=== PATIENT | male | born 1995 | race Caucasian/White ===

== ENCOUNTER 2023-03-12 12:46 | Emergency (ER) | payer OTHER, SELFPAY ==
[2023-03-12 12:47] VITALS: BP 130/85; PULSE 65; RESP 16; TEMP 36.4; O2SAT 100; BMI 29.0
--- NOTE | 2023-03-12 13:02 | EDS_ITS ---
HPI History of Present Illness Chief Complaint: Upper Extremity Injury Narrative Narrative: Presents with right dorsum of the wrist pain. He works using a hammer and he has been overusing it recently. His main concern was for a blood clot since he did have a port on his right chest wall to treat for Lyme's. He has no fevers or chills. He has no axilla pain or upper arm pain. PFSH PFS Medical History (Updated 03/12/23 @ 13:[address] Chris Costello MD) Costochondritis Left shoulder pain Medical History no medical history Home Medications Nayan's wort 300 mg capsule 300 mg PO DAILY 09/20/22 [History Last Taken Unknown] Allergy/AdvReac Type Severity Reaction Status Date / Time No Known Allergies Allergy Verified 03/12/23 12:47 Surgical History (Updated 09/20/22 @ 14:44 by Radha Shea) Hx of arthroscopy of right knee Social History (Updated 09/20/22 @ 14:44 by Radha Shea) Smoking Status: Never smoker alcohol intake: never ROS ROS ED ROS Narrative Past medical history: none Medications: Reviewed Social history: Noncontributory Review of systems: Musculoskeletal: As in HPI Skin: No abrasions or lacerations Neurological: No weakness or paresthesias Hematologic: No easy bleeding or easy bruising EXAM Physical Exam Narrative Exam Narrative: Physical exam General: Patient does not appear in significant distress . Head: Normocephalic, Atraumatic Neck: No C-spine tenderness Cardiovascular: Normal distal pulses Back: Nontender, Normal Inspection. Extremities: Patient has tenderness over the extensor tendons of the wrist on the radial side, this is in the dorsum of the forearm distally. There is no volar tenderness there is no tenderness in the antecubital or brachial region or axillary region of the arm or a DVT would be. This is quite reproducible pain. There is no erythema or calor. Skin: No abrasions, no lacerations Neurological: Normal strength and sensation Const Vital Signs: 03/12/23 12:47 Temperature 97.6 F L Temperature Source Temporal Pulse Rate 65 Respiratory Rate 16 Blood Pressure 130/85 H Blood Pressure Mean 100 Pulse Ox 100 Oxygen Delivery Method Room Air MDM MDM MDM Narrative Medical decision making narrative: At this time based on the patient's pain it is nowhere near a deep vein, it is consistent with tendinitis and not with a DVT therefore an ultrasound is not needed I talked to the patient he agrees he was also somewhat concerned about a possible infection I reassured him that there is no signs or symptoms of an abscess, or cellulitis. I will give him a thumb spica splint to help as he wo rks however I also told him that he needs to decrease the activity of using a hammer which is likely causing his symptoms. He can take NSAIDs [id number] as needed otherwise I will discharge him in stable condition. X-rays also not needed since he does not have any bony tenderness. Discharge Plan Triage Chief Complaint: Upper Extremity Injury ED Provider: Chris Costello Dx/Rx/DC Orders Clinical Impression: Acute wrist pain, Tendinitis Instructions: Tendonitis and Tenosynovitis Prescriptions: No Action Nayan's wort 300 mg capsule 300 mg PO DAILY Primary Care Provider: Fatou Wiggins Referrals: Fatou Wiggins PA [Primary Care Provider] - 3-5 Days Disposition Disposition: Home, Self Care
--- NOTE | 2023-03-12 13:07 | EX.ED.UPPERE ---
HPI History of Present Illness Chief Complaint: Upper Extremity Injury [facility] Medical History (Updated 03/12/23 @ 13:[address] Chris Costello MD) Costochondritis Left shoulder pain Medical History no medical history Home Medications Nayan's wort 300 mg capsule 300 mg PO DAILY 09/20/22 [History Last Taken Unknown] Allergy/AdvReac Type Severity Reaction Status Date / Time No Known Allergies Allergy Verified 03/12/23 12:47 Surgical History (Updated 09/20/22 @ 14:44 by Radha Shea) Hx of arthroscopy of right knee Social History (Updated 09/20/22 @ 14:44 by Radha Shea) Smoking Status: Never smoker alcohol intake: never EXAM Physical Exam Const Vital Signs: 03/12/23 12:47 Temperature 97.6 F L Temperature Source Temporal Pulse Rate 65 Respiratory Rate 16 Blood Pressure 130/85 H Blood Pressure Mean 100 Pulse Ox 100 Oxygen Delivery Method Room Air Discharge Plan Triage Chief Complaint: Upper Extremity Injury ED Provider: Chris Costello Dx/Rx/DC Orders Clinical Impression: Acute wrist pain, Tendinitis Instructions: Tendonitis and Tenosynovitis Prescriptions: No Action Nayan's wort 300 mg capsule 300 mg PO DAILY Primary Care Provider: Fatou Wiggins Referrals: Fatou Wiggins PA [Primary Care Provider] - 3-5 Days Disposition Disposition: Home, Self Care
== END 2023-03-12 14:08 | disposition home or self-care (01) ==
LOC: ED 13:23
PROVIDERS: Emergency Provider Emergency Medicine; PCP Physician Assistant; Visit Provider Emergency Medicine
DX: M25.531 Pain in right wrist (principal); M77.9 Enthesopathy, unspecified
CPT/HCPCS: 99282